=== PATIENT | male | born 1950 | race Caucasian/White ===

== ENCOUNTER → 2018-04-17 | Outpatient (CLI) | payer MEDICARE ==
--- NOTE | 2018-04-17 13:27 | KCIC ---
EXAM: Abdomen, single view. HISTORY: Nephrolithiasis. COMPARISON: None. FINDINGS: Frontal views of the abdomen and pelvis are obtained. There is a left nephroureteral stent overlying expected position. There are 4 mm and 3 mm stones along the course of the proximal ureteral stent. There are 9 mm and 13 mm left intrarenal stones or clusters of stones. No convincing right nephroureterolithiasis is seen. There is degenerative change at the lumbosacral junction. There is a nonobstructive bowel gas pattern. IMPRESSION: 1. Left nephroureteral stent overlying expected position. 2. Small stones within the proximal left ureter. 3. Left nephrolithiasis. The largest stone or cluster of stones measures 13 mm. Electronically signed by: Tammie Blackwood MD (04/17/2018 1:23 PM) [id number]
== END | disposition home or self-care (01) ==
LOC: KCIC 10:47
PROVIDERS: ATTEND Urology
DX: N20.0 Calculus of kidney (principal)
CPT/HCPCS: 74018

== ENCOUNTER → 2021-06-10 | Outpatient (CLI) | payer MEDICARE ==
--- NOTE | 2021-06-10 16:56 | RAD ---
US RENAL BILAT History: Reason: LT FLANK PAIN/HX OF NEPHRLITHIASIS / Spl. Instructions: / History: Comparison: None. Procedure: Transabdominal ultrasound images are obtained of the kidneys and bladder. Findings: Right kidney: measures 11.4 x 6.2 x 6.4 cm. Normal cortical echotexture. Corticomedullary differenti ation is preserved. No hydronephrosis. Left kidney: measures 12.4 x 6.2 x 6.6 cm. Normal cortical echotexture. Corticomedullary differentia tion is preserved. Moderate left hydronephrosis. Urinary bladder: No urinary bladder wall thickening. Bilateral ureteral jets are identified. The IVC is normal caliber. The visualized abdominal aorta is normal caliber. IMPRESSION: 1. Moderate left hydronephrosis. Electronically signed by: Ed Enamorado DO (06/10/2021 4:53 PM) [id number]
== END ==
LOC: US 15:51
PROVIDERS: ATTEND Internal Medicine
DX: N13.30 Unspecified hydronephrosis (principal); R10.9 Unspecified abdominal pain; Z87.442 Personal history of urinary calculi
CPT/HCPCS: 76770

== ENCOUNTER → 2021-07-06 | Outpatient (CLI) | payer MEDICARE ==
--- NOTE | 2021-07-06 16:11 | KCIC ---
EXAMINATION: MRI LEFT KNEE WITHOUT IV CONTRAST CLINICAL HISTORY: Left knee pain. New anterior left knee pain after missing the last step 4 days ago. TECHNIQUE: Multiplanar multisequential images obtained through the knee without intravenous contrast. COMPARISON: None FINDINGS: MENISCI: Medial Meniscus: Small tear suspected at the junction of the posterior horn and root with mild extrus ion of the body Lateral Meniscus: Intact LIGAMENTS: ACL: Intact PCL: Intact MCL: Intact LCL Complex: Intact CARTILAGE: Medial Femoral Condyle: Small area(s) of low grade (less than 50% thickness) partial thickness cartil age loss and or fissuring in the posterior condyle Medial Tibial Plateau: Normal Lateral Femoral Condyle: Normal Lateral Tibial Plateau: Normal Patella: Normal Trochlea: Normal TENDONS: Distal quadriceps and patellar tendons intact. Popliteus tendon intact. BONES AND MARROW: No evidence of acute fracture or suspicious marrow replacing process. MUSCLES: Muscle bulk and signal intensity within normal limits. JOINT FLUID AND SYNOVIUM: Small to moderate joint effusion. No synovitis. Probable ruptured Monet's c yst. IMPRESSION: Suspected tear at the junction of the medial meniscal posterior horn and root with associated menisca l extrusion. No acute ligamentous injury. Electronically signed by: Parviz Beal DO (07/06/2021 4:09 PM) [id number]
== END ==
LOC: KCIC MRI 13:05
PROVIDERS: ATTEND Nurse Practitioner Family
DX: M25.462 Effusion, left knee (principal); M25.862 Other specified joint disorders, left knee; M25.562 Pain in left knee
CPT/HCPCS: 73721